=== PATIENT | female | born 1975 | race Hispanic/Latino ===

== ENCOUNTER 2016-09-17 19:07 | Emergency (ER) | payer OTHER ==
[~2016-09-17] VITALS: Ht 162.6 cm; Wt 88.6 kg
[~2016-09-17 19:07] MED LIST: ALBU18HF IH; ALPR.25T PO; CANASA PR; DIAZ5TAB3 PO; FLUV50TA3 PO; HYDR2TAB28 PO; PRE1 PO; QVAR40INH INH; ULTRAM50 MG PO
[2016-09-17 19:20] VITALS: PULSE 72; RESP 15; O2SAT 100
--- NOTE | 2016-09-17 19:50 | ED.REPORT ---
HPI-General Illness Date of Service Sep 17, 2016 ED Provider: Marc London MD 41 year old female with a history of anxiety and panic attacks presents to the ER referred from urgent care due to sharp left chest pain that awakened patient from sleep around 01:00. Symptoms were most severe until 05:00, but have been mildly present all day, exacerbated by movement. Associated symptoms include SOB , diaphoresis, and "feeling hot". Currently she denies SOB. Patient denies history of blood clots, and recent immobilization. Nursing Notes Stated Complaint: CHEST PAIN Chief Complaint: Chest Pain Nursing Notes Reviewed: Yes Allergies: Coded Allergies: Opioids - Morphine Analogues (Verified Allergy, Severe, RASH, 02/29/12) Replaces OXYCONTIN 20M acetaminophen (Verified Allergy, Severe, HIVES, 02/29/12) aspirin (Verified Allergy, Severe, GI distress, 02/29/12) clindamycin (Verified Allergy, Severe, HIVES, 02/29/12) fluoxetine (Verified Allergy, Severe, FATIGUE, 02/29/12) flurbiprofen (Verified Allergy, Severe, GI Distress, 02/29/12) hydrocodone bitartrate (Verified Allergy, Severe, RASH, 02/29/12) Replaces OXYCONTIN 20M oxycodone (Verified Allergy, Severe, RASH, 02/29/12) Replaces OXYCONTIN 20M tramadol (Verified Allergy, Severe, HIVES (PT TAKES PRN), 02/29/12) codeine (Verified Allergy, Intermediate, Hives, 02/29/12) NSAIDS (Non-Steroidal Anti-Inflamma (Verified Adverse Reaction, Intermediate, INFLAMMATORY BOWEL DISEASE, 11/10/15) Scheduled ([Canasa]) 1,000 MG ND HS rectal suppository Albuterol-Expunged Drug, Do Not Renew! (Albuterol-Expunged Drug, Do Not Renew!) 200 Puff/18 Gm Hfa.aer.ad 200 PUFF IH PRN Alprazolam-Expunged Drug, Do Not Renew! (Alprazolam-Expunged Drug, Do Not Renew! ) 0.25 Mg Tablet 0.25 MG PO DAILYP Beclomethasone Dip-Expunged Drug, Do Not Jose Martin (Qvar 40-Expunged Drug, Do Not Renew!) 120 Puffs/8.7 Gm Aero 120 PUFFS INH PRN Diazepam-Expunged Drug, Do Not Renew! (Diazepam-Expunged Drug, Do Not Renew!) 5 Mg Tablet 5 MG PO BID Fluvoxamine- Expunged Drug, Do Not Renew! (Fluvoxamine- Expunged Drug, Do Not Renew!) 50 Mg Tablet 50 MG PO HS Hydromorphone-Expunged Drug, Do Not Renew! (Hydromorphone-Expunged Drug, Do Not Renew!) 2 Mg Tablet 1-2 MG PO Q 4-6HRS PRN PredniSONE-Expunged Drug, Do Not Renew! (PredniSONE-Expunged Drug, Do Not Renew! ) 1 Mg Tab 1 MG PO DAILY DECREASING DOSES STARTING 02/22/12/PT STOPPED 02/22/12 Tramadol-Expunged Drug, Do Not Renew! (Ultram-Expunged Drug, Do Not Renew!) 50 Mg Tab 50 MG PO PRN General Time Seen by MD: 19:47 Chief Complaint Chest pain Hx Obtained From: Patient Arrived By: Walk-in Sudden in Onset?: Yes Onset Occurred: 21 - 23 hours ago Symptom Duration: Since onset Location: : Chest Quality: Sharp Radiation: : Does not radiate Severity: Current: Mild Severity: Maximum: Moderate Associated with: Reports: Diaphoresis Pertinent Negative: Pt denies other symptoms Recent Healthcare: Recent doctor visit Similar Sx Previous: No Past Medical History Past Medical History ADD Anxiety with panic attacks Reports: Asthma Past Surgical History LEEP Reports: Cholecystectomy Family History Mother- heart attack at age 53, hypertension, of sepsis Smoking History Never Smoker Review of Systems Full Review of Systems Constitutional: Denies: Chills, Fever Respiratory: Reports: Shortness of breath, Denies: Non-productive cough Cardiovascular: Reports: Chest pain GI: Denies: Nausea, Vomiting Musculoskeletal: Denies: Back pain, Extremity pain, Neck pain Skin: Reports Diaphoresis Complete sys rev & neg: except as marked. Physical Exam Vital Signs Vital Signs Date Time Temp Pulse Resp B/P Pulse Ox O2 Delivery O2 Flow Rate FiO2 09/17/16 20:21 84 16 131/62 97 Room Air 09/17/16 19:20 36.7 72 15 100 Initial VS: Reviewed Head / Eyes: Atraumatic, Normocephalic Neck: Supple, Non-tender, Full range of motion Abdomen / GI: Soft, Non-tender, No guarding, No rebound, No distention Extremities: Vascular intact, Neuro intact, No swelling, No tenderness Skin: Warm, Dry, No cyanosis Neurologic: Alert, Oriented, Nonfocal General/Constitutional: Awake, Alert, Well developed, Well nourished Respiratory / Chest: Breath sounds NL, No respiratory distress, No rales, No rhonchi, No wheezing Cardiovascular: Heart rate NL, Regular rhythm, Heart sounds NL, Cap refill not delayed, Peripheral circulation NL Interpretation & Diagnostics Lab Results Interpretation Result Diagram: 09/17/16 1950 09/17/16 1950 Test 09/17/16 19:50 White Blood Count 11.9th/mm3 (3.8-10.1) Red Blood Count 5.06mil/mm3 (3.90-5.20) Hemoglobin 15.6g/dL (12.0-15.6) Hematocrit 45.3% (35.0-46.0) Mean Corpuscular Volume 89.5fL (81-100) Mean Corpuscular Hemoglobin 30.8pg (27.0-35.0) Mean Corpuscular Hemoglobin Concent 34.4% (32.0-37.0) Red Cell Distribution Width 13.3% (12.3-15.4) Platelet Count 300bil/L (150-400) Neutrophils (%) (Auto) 50.4% (40-74) Lymphocytes (%) (Auto) 40.5% (14-46) Monocytes (%) (Auto) 5.9% (4-12) Eosinophils (%) (Auto) 2.5% (0-5) Basophils (%) (Auto) 0.4% (0-3) Sodium Level 139mEq/L (134-144) Potassium Level 4.0mEq/L (3.5-5.2) Chloride Level 101mEq/L (97-108) Carbon Dioxide Level 23mmol/L (18-29) Blood Urea Nitrogen 15mg/dL (6-24) Creatinine 1.13mg/dL (0.57-1.00) Estimat Glomerular Filtration Rate 76mL/min (>59) Glucose Level 96mg/dL (60-99) Calcium Level 9.0mg/dL (8.5-10.1) Magnesium Level 2.1mg/dL (1.6-2.6) Total Bilirubin 0.2mg/dL (0.0-1.2) Aspartate Amino Transf (AST/SGOT) 20U/L (0-50) Alanine Aminotransferase (ALT/SGPT) 19U/L (0-32) Alkaline Phosphatase 86U/L (25-150) Troponin T < 0.010ug/L (0.0-0.011) Total Protein 7.7g/dL (6.4-8.4) Albumin 4.2g/dL (3.4-5.0) Hold Bonilla Top Tube Received (Received) ECG Interpretation Time: 20:41 Interpreted by: ED physician Normal ECG Interpretation: Normal rate, Normal sinus rhythm, No acute ischemic changes, Normal QRS, Normal axis, Normal intervals, No change from prior ECGs, Adequate tracing Re-Eval/Medical Decision Med Decision/Clinical Course 41 year old female with a history of anxiety and panic attacks presents to the ER referred from urgent care due to sharp left chest pain that awakened patient from sleep around 01:00. Symptoms were most severe until 05:00, but have been mildly present all day, exacerbated by movement. CXR: Reviewed and interpreted by myself shows no evidence of acute infiltrates, effusions or pneumothorax. Cardiac and mediastinal silhouette normal. No bony or soft tissue abnormalities. Labs from reviewed as below: Trop negative DDimer negative Creat elevated 1.22 Chem nl Mild leuk 11.1 Hgb and hct wnl platelet wnl Patient is extremely low risk for pulmonary embolism. D-dimer negative. I see no further indications to workup for PE at this time. Presentation is not suggestive of acute coronary syndrome. EKG obtained and interpreted by myself as documented above demonstrates no acute ischemic changes. No evidence of pneumonia or pneumothorax. Although presentation most consistent with musculoskeletal pain. At this time I feel patient is appropriate for discharge home. Follow-up and return precautions were reviewed in detail and the patient was discharged in good condition. Source of Hx: Old records Time of Eval: 20:45 Re-Evaluation/Progress Note: Discussed lab results. Time of Eval: 22:04 Re-Evaluation/Progress Note: Patient eloped prior to receiving discharge instructions Discharge & Departure Primary Impression: Non-cardiac chest pain Additional Impression: Anxiety Discharge Condition All VS Reviewed: Yes Referrals: Dinorah Saavedra (PCP) Scribe Attestation Portions of this note were transcribed by Jose Hernadez. I, Dr. London, personally performed the history, physical exam and medical decision-making; I reviewed and confirmed the accuracy of the information in the transcribed note. Signed by: Shanta Lira, 09/17/2016 and 22:04 copies to: Dinorah Saavedra Beck O MD Sep 17, 2016 19:50 JOSE HERNADEZ Sep 17, 2016 20:22
[2016-09-17 20:01] LABS: BASOPHILS % (AUTO) 0.4 % (0-3); EOSINOPHILS % (AUTO) 2.5 % (0-5); MONOCYTES % (AUTO) 5.9 % (4-12); Mean Corpuscular Hemoglobin 30.8 pg (27.0-35.0); Mean Corpuscular Volume 89.5 fL (81-100); NEUTROPHILS % (AUTO) 50.4 % (40-74); Platelet Count 300 bil/L (150-400)
[2016-09-17 20:21] VITALS: BP 131/62; PULSE 84; RESP 16; O2SAT 97
[2016-09-17 20:23] LABS: Magnesium 2.1 mg/dL (1.6-2.6)
[2016-09-17 20:24] LABS: TROPONIN T < 0.010 ug/L (0.0-0.011)
== END 2016-09-17 22:15 | disposition left against medical advice (07) ==
LOC: SED 19:07
DX: R07.89 Other chest pain (principal); F41.9 Anxiety disorder, unspecified; F90.9 Attention-deficit hyperactivity disorder, unspecified type; J45.909 Unspecified asthma, uncomplicated; Z79.51 Long term (current) use of inhaled steroids; Z79.52 Long term (current) use of systemic steroids; Z88.5 Allergy status to narcotic agent; Z88.6 Allergy status to analgesic agent; Z88.1 Allergy status to other antibiotic agents; Z88.8 Allergy status to other drugs, medicaments and biological substances

== ENCOUNTER 2017-02-27 09:08 | Emergency (ER) | payer OTHER ==
[~2017-02-27] VITALS: Ht 162.6 cm; Wt 90.9 kg
--- NOTE | 2017-02-27 09:09 | ED.REPORT ---
HPI-Back Pain 40 and Over Date of Service Feb 27, 2017 ED Provider: Beth Shah MD The pt is a 41 y/o female w/ a hx of ADD, asthma, and anxiety w/ panic attacks presenting to the ED complaining of lower back pain onset 2 days ago. The pt was seen at [facility] yesterday and was given Tizanidine and told to apply heat to the area but the pain became much more severe making it difficult for her to walk and causing her to come to the ED today in a wheelchair. She describes the pain as radiating down her R leg and feeling like her L leg is weaker. She also reports feeling like she needs to urinate but is unsure if there is any incontinence as well as her bladder hurting like a bladder infection the day before the back pain began. Denies any numbness or SOB. 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 The pt also reports daily mild CP which she thinks is unrelated to the back pain. Nursing Notes Stated Complaint: BACK PAIN Chief Complaint: Lower back pain Nursing Notes Reviewed: Yes Allergies: Coded Allergies: Opioids - Morphine Analogues (Verified Allergy, Severe, RASH, 02/27/17) Replaces OXYCONTIN 20M acetaminophen (Verified Allergy, Severe, HIVES, 02/27/17) aspirin (Verified Allergy, Severe, GI distress, 02/27/17) clindamycin (Verified Allergy, Severe, HIVES, 02/27/17) fluoxetine (Verified Allergy, Severe, FATIGUE, 02/27/17) flurbiprofen (Verified Allergy, Severe, GI Distress, 02/27/17) hydrocodone bitartrate (Verified Allergy, Severe, RASH, 02/27/17) Replaces OXYCONTIN 20M oxycodone (Verified Allergy, Severe, RASH, 02/27/17) Replaces OXYCONTIN 20M tramadol (Verified Allergy, Severe, HIVES (PT TAKES PRN), 02/27/17) codeine (Verified Allergy, Intermediate, Hives, 02/27/17) NSAIDS (Non-Steroidal Anti-Inflamma (Verified Adverse Reaction, Intermediate, INFLAMMATORY BOWEL DISEASE, 02/27/17) Scheduled ([Canasa]) 1,000 MG NV HS rectal suppository Albuterol-Expunged Drug, Do Not Renew! (Albuterol-Expunged Drug, Do Not Renew!) 200 Puff/18 Gm Hfa.aer.ad 200 PUFF IH PRN Alprazolam-Expunged Drug, Do Not Renew! (Alprazolam-Expunged Drug, Do Not Renew! ) 0.25 Mg Tablet 0.25 MG PO DAILYP Beclomethasone Dip-Expunged Drug, Do Not Jose Martin (Qvar 40-Expunged Drug, Do Not Renew!) 120 Puffs/8.7 Gm Aero 120 PUFFS INH PRN Dexamethasone (Dexamethasone) 4 Mg Tablet 8 MG PO DAILY Diazepam-Expunged Drug, Do Not Renew! (Diazepam-Expunged Drug, Do Not Renew!) 5 Mg Tablet 5 MG PO BID Fluvoxamine- Expunged Drug, Do Not Renew! (Fluvoxamine- Expunged Drug, Do Not Renew!) 50 Mg Tablet 50 MG PO HS Hydromorphone-Expunged Drug, Do Not Renew! (Hydromorphone-Expunged Drug, Do Not Renew!) 2 Mg Tablet 1-2 MG PO Q 4-6HRS PRN PredniSONE-Expunged Drug, Do Not Renew! (PredniSONE-Expunged Drug, Do Not Renew! ) 1 Mg Tab 1 MG PO DAILY DECREASING DOSES STARTING 02/22/12/PT STOPPED 02/22/12 Tramadol-Expunged Drug, Do Not Renew! (Ultram-Expunged Drug, Do Not Renew!) 50 Mg Tab 50 MG PO PRN Scheduled PRN Hydrocodone-Acetaminophen 7.5-325 mg (Hydrocodone-Acetaminophen 7.5-325 mg) 1 Each Tablet 1-2 TABLET PO Q4H PRN PRN For Pain General Time Seen by MD: 09:09 Chief Complaint Back pain (Lower ) Hx Obtained From: Patient Arrived By: Walk-in Sudden in Onset?: Yes Onset Occurred: 2 days ago Symptom Duration: Since onset Recent Healthcare: No recent hospitalization, Recent doctor visit Similar Sx Previous: Yes Past Medical History Past Medical History ADD Anxiety with panic attacks Reports: Asthma Past Surgical History LEEP Reports: Cholecystectomy Family History Mother- heart attack at age 53, hypertension, of sepsis Smoking History Never Smoker Social History Other Social History: Good social support Ambulatory Status Independent Review of Systems Mild daily CP that the pt suspects is unrelated to her lower back pain Respiratory: Denies: Shortness of breath Musculoskeletal: Reports: Back pain (lower ), Extremity pain (RLE ) Neurologic: Reports: Weakness (LLE ), Denies: Numbness Complete sys rev & neg: except as marked. Physical Exam Initial Vital Signs Vital Signs (First) Date Time Temp Pulse Resp B/P Pulse Ox O2 Delivery O2 Flow Rate FiO2 02/27/17 09:11 37.2 83 16 134/57 97 Room Air Initial VS: Reviewed Head / Eyes: Atraumatic, Normocephalic, PERRL ENT: Mucous membranes moist, Conjunctiva normal, No scleral icterus Neck: Supple, Non-tender, Full range of motion Skin: Warm, Dry, No cyanosis Psychiatric: Mood/affect normal, Behavior normal, Normal thought content General/Constitutional: Awake, Alert Respiratory / Chest: Atraumatic, Breath sounds NL, Breath sounds = bilat Cardiovascular: Heart rate NL, Regular rhythm, Heart sounds NL Abdomen: Atraumatic, Soft, Non-tender Back: Full range of motion S1-L2 tenderness Neurologic: Oriented X3, Speech NL Lower Extremity / Pelvis / MS: Full range of motion Normal dorsiflexion and plantar flexion bilaterally Sciatic notch on R tender Straight leg test positive on L at 30 degrees Straight leg test positive on R at 30 degrees Re-Eval/Medical Decision Source of Hx: Old records Re-Evaluation/Progress : Time of Eval: 10:21 Re-Evaluation/Progress Note: Rechecked pt who says the pain medication took the edge off and reportsbeing able to walk to the bathroom independently. Informed pt of plan for treatment. Pt understands and agrees with plan for treatment. F/U instructions and RTER warnings given. All questions addressed. Counseled Regarding: Diagnosis, Lab results, Need for follow-up, When/why to return to ED Discharge & Departure Impression: Primary Impression: Lumbosacral strain Encounter type: initial encounter Qualified Code: S39.012A - Strain of muscle, fascia and tendon of lower back, initial encounter Additional Impression: Lumbar radiculopathy, acute Disposition: Home Discharge Condition All VS Reviewed: Yes Condition: Stable Patient Instructions: Acute Low Back Pain (ED) Additional Instructions: Thank for you entrusting us with your care today. No dangerous nerve impingement is suspected at this time. Please take the Decadron and Vicodin as prescribed. You are still able to drive while taking the Decadron but I strongly recommend you staying at home while taking the Vicodin. Also try to get up and walk around the house every hour or so as it will help with your healing. I suggest stopping the use of the muscle relaxers that were given to you. Please return to the emergency department if you experience any incontinence, weakness, persistent numbness that lasts for hours, or any other new or worsening symptoms. Please see the provider at [facility] at the clinic Tuesday or for further follow up. Referrals: Dinorah Saavedra (PCP) Scribe Attestation Portions of this note were transcribed by Jeremy Mejía. I, Dr. Campos personally performed the history, physical exam and medical decision-making; I reviewed and confirmed the accuracy of the information in the transcribed note. copies to: Dinorah Saavedra Kirk H MD Feb 27, 2017 09:09 Jeremy Mejía Feb 27, 2017 10:06
[2017-02-27 09:11] VITALS: BP 134/57; PULSE 83; RESP 16; O2SAT 97
[2017-02-27] MEDS ORDERED: diphenhydrAMINE 25 mg Capsule PO ONE (09:20)
[2017-02-27] MEDS ORDERED: HYDROcodone-APAP 7.5-325 mg Tablet PO ONE (09:20)
[2017-02-27] MEDS ORDERED: DXM4T PO (10:44)
[2017-02-27] MEDS ORDERED: HYDR-3825 PO (10:44)
[2017-02-27 10:50] VITALS: BP 114/70; PULSE 63; RESP 20; O2SAT 97
== END 2017-02-27 10:51 | disposition home or self-care (01) ==
LOC: SED 09:08
DX: S39.012A Strain of muscle, fascia and tendon of lower back, initial encounter (principal); M54.16 Radiculopathy, lumbar region; X50.0XXA Overexertion from strenuous movement or load, initial encounter; Y93.89 Activity, other specified; Y92.9 Unspecified place or not applicable; Y99.0 Civilian activity done for income or pay; J45.909 Unspecified asthma, uncomplicated; F41.8 Other specified anxiety disorders; F91.8 Other conduct disorders; Z88.5 Allergy status to narcotic agent; Z88.6 Allergy status to analgesic agent; Z88.1 Allergy status to other antibiotic agents; Z88.8 Allergy status to other drugs, medicaments and biological substances